=== PATIENT | male | born 1955 | race Caucasian/White ===

== ENCOUNTER 2018-01-29 11:00 | Emergency (ER) | payer MEDICARE, OTHER ==
[~2018-01-29] VITALS: Ht 180.3 cm; Wt 31.0 kg
[2018-01-29] MEDS ORDERED: TRAZ-136 PO (11:23)
[2018-01-29] MEDS ORDERED: WARF-36 PO (11:24)
[2018-01-29] MEDS ORDERED: WARF2.5T73 PO (11:24)
[2018-01-29 11:25] VITALS: BP 113/73
[2018-01-29] MEDS ORDERED: PROP10TA PO (11:25)
[2018-01-29] MEDS ORDERED: KETOROLAC 30 MG/1 ML ONE (11:27)
[2018-01-29] MEDS ORDERED: KETOROLAC 30 MG/1 ML IM ONE (11:30)
== END 2018-01-29 12:41 | disposition home or self-care (01) ==
LOC: ED 12:35
DX: S22.42XA Multiple fractures of ribs, left side, initial encounter for closed fracture (principal); I10 Essential (primary) hypertension; W19.XXXA Unspecified fall, initial encounter; Y93.89 Activity, other specified; Y99.8 Other external cause status; Y92.009 Unspecified place in unspecified non-institutional (private) residence as the place of occurrence of the external cause
CPT/HCPCS: 71101; 96372; 99284; J1885